=== PATIENT | male | born 1985 | race Caucasian/White ===

== ENCOUNTER 2019-04-30 20:25 | Emergency (ER) | payer OTHER, MEDICAID, SELFPAY ==
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
[2019-04-30 20:39] VITALS: BP 149/100; PULSE 102; RESP 20; TEMP 36.9; O2SAT 98; BMI 23.3
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
== END 2019-04-30 22:04 | disposition home or self-care (01) ==
PROVIDERS: Emergency Provider Emergency Medicine
DX: K13.79 Other lesions of oral mucosa (principal); Y04.2XXA Assault by strike against or bumped into by another person, initial encounter
CPT/HCPCS: 70486; 99282; 99284